=== PATIENT | male | born 1990 | race Caucasian/White ===

== ENCOUNTER 2017-02-04 18:35 | Emergency (ER) | payer BC, SELFPAY ==
[~2017-02-04 18:35] MED LIST: ANTIVERT25 M1 PO; COMPAZINE10 MG PO; IBUPROFEN600 M1 PO; NORCO 5-325 TA1 EACH PO; SERTRALINE HCL50 M4 PO; [UNRECOGNIZED DRUG - OTHER]; [UNRECOGNIZED DRUG - OTHER] PO
[2017-02-04] MEDS ORDERED: TOPAMAX100 M2 PO (19:05)
[2017-02-04 19:30] LABS: BASO % 0.3 % (0-2); EOS % 2.4 % (0-7); EOSINOPHIL ABSOLUTE COUNT 0.1 tho/cmm (0.0-0.7); HCT-HEMATOCRIT 44.8 % (36.0-53.5); HGB-HEMOGLOBIN 15.9 gm/dl (13.5-17.0); IMMATURE GRANULOCYTES ABSOLUTE 0.01 tho/cmm (0-0.03); IMMATURE GRANULOCYTES PERCENT 0.2 % (0-0.3); LYMPH % 42.3 % (20-45); LYMPH ABSOLUTE COUNT 2.4 tho/cmm (0.8-4.5); MCH (MEAN CORPUSCULAR HGB) 29.2 pg (28.0-32.0); MCHC MEAN CORPUSCULAR HGB CONC 35.5 % (32.0-36.0); MCV (MEAN CELL VOLUME) 82.4 fl (82.0-96.0); MEAN PLATELET VOLUME 10.5 cmc (9.4-12.4); MONO % 8.4 % (0-12); MONOCYTE ABSOLUTE COUNT 0.5 tho/cmm (0.0-1.2); NEUTROPHIL ABSOLUTE COUNT 2.7 tho/cmm (1.6-8.0); NEUTROPHIL-AUTOMATED 2.7 tho/cmm (1.6-8.0); NEUTROPHILS % 46.4 % (40-80); PLATELET COUNT 205 tho/cmm (150-450); RED BLOOD COUNT 5.44 mil/cmm (4.40-5.70); RED CELL DISTRIBUTION WIDTH 13.2 % (12.4-16.4); WHITE BLOOD COUNT 5.7 tho/cmm (4.0-10.0)
[2017-02-04 19:39] LABS: ANION GAP 12 mmol/L (0-20); BLOOD UREA NITROGEN 15 mg/dl (6-24); CALCIUM 8.8 mg/dl (8.5-10.5); CARBON DIOXIDE-VENOUS 25 mmol/L (22-32); CHLORIDE 106 mmol/l (96-110); CREATININE 1.27 mg/dl (0.60-1.30); GLUCOSE 98 mg/dL (70-110); SODIUM 139 mmol/L (135-145); eGFR VALUE FOR BLACK 89 mL/Min
[2017-02-04] MEDS ORDERED: VALIUM5 M1 PO (20:47)
== END 2017-02-04 20:58 ==
LOC: EDMED 18:35
PROVIDERS: Physician Assistant
DX: R42 Dizziness and giddiness (principal); R51 Headache; Z98.890 Other specified postprocedural states
CPT/HCPCS: J1885; J7030